=== PATIENT | male | born 1960 | race Caucasian/White ===

== ENCOUNTER 2021-12-26 09:34 | Emergency (ER) | payer BC ==
[~2021-12-26] VITALS: Ht 170.2 cm; Wt 90.9 kg
[~2021-12-26 09:34] MED LIST: ATACAND16 MG PO; MEDDOSEPAK PO; METFORMIN500 MG PO; POLYTRIM OU; SIMVASTATIN5 MG PO; ZITHROMAX250 MG PO
[2021-12-26] MEDS ORDERED: HYDROCHLOROT25 MG PO (09:46)
[2021-12-26] MEDS ORDERED: LOSARTAN POTASS50 MG PO (09:46)
[2021-12-26] MEDS ORDERED: FENOFIBRATE145 MG PO (09:47)
[2021-12-26] MEDS ORDERED: METOPROLOL SUCC50 MG PO (09:47)
[2021-12-26] MEDS ORDERED: GLIMEPIRIDE2 MG PO (09:48)
[2021-12-26] MEDS ORDERED: ASPIRIN81 MG PO (09:48)
[2021-12-26] MEDS ORDERED: FISH OIL1200 M1 PO (09:49)
[2021-12-26] MEDS ORDERED: TRESIBA FL100 UNIT/M (09:49)
[2021-12-26] MEDS ORDERED: TRULICITY1.5 MG/0.5 (09:50)
[2021-12-26] MEDS ORDERED: CIALIS10 MG PO (09:51)
[2021-12-26 11:02] LABS: HEMATOCRIT 38.5 % (39.0-50.0); HEMOGLOBIN 13.3 g/dl (14.0-18.0); IMMATURE GRANULOCYTES 0.1 % (0.0-5.0); MEAN CELL VOLUME 91.7 fL CALC (80.0-100.0); MEAN CORPUSCULAR HGB 31.7 pG CALC (26.0-32.0); MEAN CORPUSCULAR HGB CONC 34.5 g/dL CAL (32.0-36.0); NEUT# 4.71 thou/uL (1.82-7.42); RED BLOOD COUNT 4.2 mill/uL (4.70-6.10); RED CELL DISTRI WIDTH 12.2 % (11.5-15.5)
[2021-12-26 11:06] LABS: ALBUMIN 4.2 g/dL (3.2-5.0); ALKALINE PHOSPHATASE 78 u/l (38-126); ANION GAP 15 (6-22 (CALC)); BILIRUBIN, TOTAL 0.9 mg/dL (0.0-1.4); BUN 17 mg/dL (9-20); BUN/CREATININE RATIO 13 (12-20 (CALC)); CARBON DIOXIDE 27 mmol/l (22-30); CHLORIDE 97 mmol/l (95-108); CREATININE 1.4 mg/dL (0.7-1.3); GFR FOR AFR.AMER. > 60 ML/MIN (>=60 (CALC)); GFR OTHER RACES 52 ML/MIN (>=60 (CALC)); SGOT/AST 38 u/l (17-59); SODIUM 135 mmol/l (137-146); TOTAL PROTEIN 6.6 g/dL (6.3-8.2)
[2021-12-26 11:23] LABS: URINE BILIRUBIN - DIPSTICK NEGATIVE (NEGATIVE); URINE BLOOD DIPSTICK TRACE-INTACT (NEGATIVE); URINE COLOR YELLOW; URINE GLUCOSE - DIPSTICK 100 mg/dL (NEGATIVE); URINE KETONE NEGATIVE (NEGATIVE); URINE LEUK ESTERASE NEGATIVE (NEGATIVE); URINE PH 6.5 (4.5-8.0); URINE PROTEIN - DIPSTICK NEGATIVE (NEG-TRACE); URINE UROBILINOGEN - DIPSTICK 0.2 E.U./dL (0.2)
[2021-12-26 11:28] LABS: URINE NITRITE - DIPSTICK NEGATIVE (Negative)
[2021-12-26] MEDS ORDERED: HYDROCO/APAP1 TA9 PO (11:40)
[2021-12-26] MEDS ORDERED: TAMSULOSIN0.4 MG PO (11:40)
[2021-12-26] MEDS ORDERED: KEFLEX500 MG PO (11:40)
[2021-12-26 11:46] VITALS: BP 187/98
== END 2021-12-26 11:49 | disposition home or self-care (01) | DRG 694 ==
LOC: ED 09:34
PROVIDERS: Emergency Medicine
DX: N20.1 Calculus of ureter (principal)